=== PATIENT | female | born 1985 | race Caucasian/White ===

== ENCOUNTER 2023-09-28 13:24 | Emergency (ER) | payer OTHER, BC ==
[2023-09-28 13:42] VITALS: BP 115/79; PULSE 79; RESP 16; TEMP 98.3; BMI 27.3
[2023-09-28] MEDS ORDERED: ACETAMINOPHEN 500 MG TABLET (FP) ONE (13:49)
[2023-09-28] MEDS: MINERAL OIL ENEMA 133 ML ENEMA RC ONE (14:21)
[2023-09-28] MEDS: ACETAMINOPHEN 500 MG TABLET (FP) PO ONE (14:21)
== END 2023-09-28 16:23 | disposition home or self-care (01) ==
LOC: FER 13:24
DX: K59.00 Constipation, unspecified (principal)
CPT/HCPCS: 99283-25

== ENCOUNTER 2023-10-13 21:24 | Emergency (ER) | payer OTHER, BC ==
[2023-10-13 21:39] VITALS: BP 113/65; PULSE 62; RESP 18; TEMP 99; BMI 27.4
== END 2023-10-13 22:33 | disposition home or self-care (01) ==
LOC: FER 21:24
PROC: 0HQGXZZ Repair Left Hand Skin, External Approach (ICD-10-PCS; principal; 2023-10-13)
DX: S61.215A Laceration without foreign body of left ring finger without damage to nail, initial encounter (principal); W26.8XXA Contact with other sharp object(s), not elsewhere classified, initial encounter
CPT/HCPCS: 99282-25